=== PATIENT | female | born 1985 | race Caucasian/White ===

== ENCOUNTER 2016-04-11 02:03 | Emergency (ER) | payer SELFPAY ==
[~2016-04-11] VITALS: Ht 162.6 cm; Wt 60.7 kg
[2016-04-11 02:11] VITALS: BP 143/87; PULSE 94; RESP 18; TEMP 97.5; O2SAT 98
--- NOTE | 2016-04-11 02:26 | PD ---
HPI Chief Complaint: Laceration/Skin Injury Time Seen by Provider: 02:15 Travel History International Travel<30 days: No Contact w/Intl Traveler<30days: No Traveled to known affect area: No History of Present Illness HPI 31 yo F arrives with head trauma. She fell in the shower, slipping on water. Occipital scalp struck bathtub causing bleeding. No LOC. No confusion. No amnesia to the head injury. + EtOH tonight a few drinks over several hours. Last tetanus > 5 years prior. PFSH Past Medical History ?: Not LMP: 3 WEEKS Social History Alcohol Use: Yes Tobacco Use: Yes Allergies-Medications (Allergen,Severity, Reaction): Coded Allergies: Erythromycin (Verified Allergy, Severe, Nausea/Vomiting, 04/11/16) Penicillin (Verified Allergy, Severe, Nausea/Vomiting, 04/11/16) Reported Meds & Prescriptions Reported Meds & Active Scripts Active No Active Prescriptions or Reported Medications Review of Systems Except as stated in HPI: all other systems reviewed are Neg Physical Exam Narrative GENERAL: 31 yo F, WNWD, NAD SKIN: Warm and dry. HEAD: Atraumatic. Normocephalic. approx 2cm laceration midline occipital scalp. no evidence basilar skull fracture. EYES: Pupils equal and round. No scleral icterus. No injection or drainage. ENT: No nasal bleeding or discharge. Mucous membranes pink and moist. NECK: Trachea midline. No JVD. CARDIOVASCULAR: Regular rate and rhythm. RESPIRATORY: No accessory muscle use. Clear to auscultation. Breath sounds equal bilaterally. GASTROINTESTINAL: Abdomen soft, non-tender, nondistended. Hepatic and splenic margins not palpable. MUSCULOSKELETAL: Extremities without clubbing, cyanosis, or edema. No obvious deformities. NEUROLOGICAL: Awake and alert. No obvious cranial nerve deficits. Motor grossly within normal limits. Five out of 5 muscle strength in the arms and legs. Normal speech. PSYCHIATRIC: Appropriate mood and affect; insight and judgment normal. Data Data Last Documented VS Vital Signs Date Time Temp Pulse Resp B/P Pulse Ox O2 Delivery O2 Flow Rate FiO2 04/11/16 02:19 18 04/11/16 02:11 97.5 94 143/87 98 Orders Lidocai-Epi 1%-1:100,000 Inj (Xylocaine- (04/11/16 02:30) Lidocai-Epi 1%-1:100,000 Inj (Xylocaine- (1/14/17 02:30) Tetanus/Diphtheria Tox Adult (Tetanus/Di (04/11/16 02:45) MDM Medical Decision Making Medical Screen Exam Complete: Yes Emergency Medical Condition: Yes Differential Diagnosis laceration, contusion, ICH, skull fracture Narrative Course pt began cursing out loud shortly after arrival. risks benefits and alternatives to repair of scalp laceration discussed. pt verbalized understanding and agreed to undergo laceration repair. pt continued to curse "fuck" and variants thereof loudly and frequently, audibly throughout the ER. she was reminded such conduct was inappropriate and discouraged. pt then refused laceration repair. pt understands refusal of laceration repair places her at risk for infection, cosmetic deformity, and delayed healing. pt refused tetanus shot, placing her at risk for tetany possibly . pt demonstrates capacity for independent decision making. she left ER before signing paperwork and against advise of physician. Diagnosis Primary Impression: Left against medical advice Additional Impressions: Laceration Fall Qualified Code: W19.XXXA - Fall, initial encounter Referrals: Primary Care Physician 1 day Additional Instructions: You have a choice when it comes to health care, and we are glad that you chose [facility]. Hopefully, we have met your expectations on today's visit. You are welcome to return to [facility] at any time, as we are committed to meeting the health care needs of our community. Med/Other Pt SpecificInfo: No Change to Meds Scripts No Active Prescriptions or Reported Meds Disposition: 07 AGAINST MEDICAL ADVICE Condition: Akash Mazariegos MD Apr 11, 2016 02:26
[2016-04-11] MEDS ORDERED: LIDOCAINE 1%/EPINEPHrine 1:100,000 SOLN 30 ML VIAL INFIL ONE (02:30)
[2016-04-11] MEDS ORDERED: LIDOCAINE 1%/EPINEPHrine 1:100,000 SOLN 20 ML VIAL INFIL ONE (02:30)
[2016-04-11] MEDS ORDERED: TETANUS/DIPHTHERIA TOXOID ADULT 0.5 ML VIAL IM ONE (02:45)
== END 2016-04-11 03:08 | disposition left against medical advice (07) ==
LOC: PHED 02:03
DX: S01.01XA Laceration without foreign body of scalp, initial encounter (principal); Z72.0 Tobacco use; F10.10 Alcohol abuse, uncomplicated; W01.198A Fall on same level from slipping, tripping and stumbling with subsequent striking against other object, initial encounter; Y93.E1 Activity, personal bathing and showering; Y92.89 Other specified places as the place of occurrence of the external cause; Y99.8 Other external cause status
CPT/HCPCS: 99283

== ENCOUNTER 2017-02-23 17:15 | Emergency (ER) | payer SELFPAY ==
[~2017-02-23] VITALS: Ht 162.6 cm; Wt 58.0 kg
[2017-02-23] MEDS ORDERED: IOHEXOL 350 MG/ML 10 ML VIAL (for RAD DIAG) IVCONTRAST ONE (17:16)
[2017-02-23] MEDS ORDERED: MORPHINE SULFATE 4 MG/ML INJ IV PUSH ONE (17:30)
[2017-02-23] MEDS ORDERED: SODIUM CHLORIDE 0.9% FLUSH 10 ML FLUSH IV FLUSH PRN (17:30)
[2017-02-23] MEDS ORDERED: TETANUS/DIPHTHERIA TOXOID ADULT 0.5 ML VIAL IM ONE (17:30)
[2017-02-23] MEDS ORDERED: ONDANSETRON HCL 4 MG/2 ML VIAL IVP ONE (17:30)
[2017-02-23 17:35] VITALS: BP 123/63; PULSE 105; RESP 20; TEMP 98.2; O2SAT 99
[2017-02-23 17:36] VITALS: O2SAT 99
--- NOTE | 2017-02-23 17:42 | PD ---
HPI Chief Complaint: Bite or Sting Time Seen by Provider: 17:30 Travel History International Travel<30 days: No Contact w/Intl Traveler<30days: No Traveled to known affect area: No History of Present Illness HPI 31-year-old female brought in by ambulance for evaluation after being bitten by dog. The patient reports that she was walking her dog when another dog approached them and attempted to attack her dog. She picked her dog up and her right arm and the other dog bit her in her right arm, then her left flank. She does not know the dog that attacked her, however was able to find out that he is fully immunized. Pain is severe, constant, worse with movements. She denies any other injuries. Date of last tetanus is unknown. [facility] Past Medical History Medical History: Denies Significant Hx Immunizations Current: No ?: Unknown Past Surgical History Surgical History: No Previous Surgery Social History Alcohol Use: Yes Tobacco Use: Yes (1 PPD) Substance Use: No Allergies-Medications (Allergen,Severity, Reaction): Coded Allergies: erythromycin base (Unverified Allergy, Severe, Nausea/Vomiting, 02/23/17) penicillin G (Unverified Allergy, Severe, Nausea/Vomiting, 02/23/17) Reported Meds & Prescriptions Reported Meds & Active Scripts Active No Active Prescriptions or Reported Medications Review of Systems Except as stated in HPI: all other systems reviewed are Neg Physical Exam Narrative GENERAL: Well-developed, well-nourished, comfortable, no apparent distress SKIN: Several puncture wounds to proximal/posterior/lateral right upper extremity as well as left flank with mild surrounding ecchymosis. No active bleeding. HEAD: Atraumatic. Normocephalic. EYES: Pupils equal and round. No scleral icterus. No injection or drainage. ENT: Mucous membranes pink and moist. NECK: Trachea midline. No JVD. CARDIOVASCULAR: Regular rate and rhythm. RESPIRATORY: No accessory muscle use. Clear to auscultation. Breath sounds equal bilaterally. GASTROINTESTINAL: Abdomen soft, non-tender, nondistended. MUSCULOSKELETAL: No obvious deformities. No clubbing. No cyanosis. No edema. Moderate left flank tenderness with skin exam as above. There is also moderate tenderness to the right upper extremity. NEUROLOGICAL: Awake and alert. No obvious cranial nerve deficits. Motor grossly within normal limits. Normal speech. PSYCHIATRIC: Appropriate mood and affect; insight and judgment normal. Data Data Last Documented VS Vital Signs Date Time Temp Pulse Resp B/P (MAP) Pulse Ox O2 Delivery O2 Flow Rate FiO2 02/23/17 17:36 99 Room Air 02/23/17 17:35 98.2 105 20 Orders Orders Complete Blood Count With Diff (02/23/17 17:30) Comprehensive Metabolic Panel (02/23/17 17:30) Prothrombin Time / Inr (Pt) (02/23/17 17:30) Act Partial Throm Time (Ptt) (02/23/17 17:30) Iv Access Insert/Monitor (02/23/17 17:30) Ecg Monitoring (02/23/17 17:30) Oximetry (02/23/17 17:30) Morphine Inj (Morphine Inj) (02/23/17 17:30) Ondansetron Inj (Zofran Inj) (02/23/17 17:30) Sodium Chloride 0.9% Flush (Ns Flush) (02/23/17 17:30) Ed Urine Pregnancytest Poc (02/23/17 17:30) Humerus (Min 2vws) (02/23/17 ) Ct Abd/Pel W Iv Contrast(Rout) (02/23/17 ) Urinalysis - C+S If Indicated (02/23/17 17:30) Tetanus/Diphtheria Tox Adult (Tetanus/Di (02/23/17 17:30) Clindamycin 900 Mg Premix (Cleocin 900 M (02/23/17 17:45) Iohexol 350 Inj (Omnipaque 350 Inj) (02/23/17 17:16) Potassium Chloride (Kcl) (02/23/17 19:15) Labs Laboratory Tests Test 02/23/17 17:50 White Blood Count 14.8 TH/MM3 Red Blood Count 4.56 MIL/MM3 Hemoglobin 15.0 GM/DL Hematocrit 43.4 % Mean Corpuscular Volume 95.2 FL Mean Corpuscular Hemoglobin 32.8 PG Mean Corpuscular Hemoglobin Concent 34.5 % Red Cell Distribution Width 13.5 % Platelet Count 296 TH/MM3 Mean Platelet Volume 8.1 FL Neutrophils (%) (Auto) 75.8 % Lymphocytes (%) (Auto) 17.1 % Monocytes (%) (Auto) 6.3 % Eosinophils (%) (Auto) 0.4 % Basophils (%) (Auto) 0.4 % Neutrophils # (Auto) 11.2 TH/MM3 Lymphocytes # (Auto) 2.5 TH/MM3 Monocytes # (Auto) 0.9 TH/MM3 Eosinophils # (Auto) 0.1 TH/MM3 Basophils # (Auto) 0.1 TH/MM3 CBC Comment DIFF FINAL Differential Comment Prothrombin Time 11.0 SEC Prothromb Time International Ratio 1.0 RATIO Activated Partial Thromboplast Time 22.6 SEC Urine Color YELLOW Urine Turbidity HAZY Urine pH 7.5 Urine Specific [place] 1.022 Urine Protein 30 mg/dL Urine Glucose (UA) NEG mg/dL Urine Ketones 10 mg/dL Urine Occult Blood NEG Urine Nitrite NEG Urine Bilirubin NEG Urine Urobilinogen LESS THAN 2.0 MG/DL Urine Leukocyte Esterase NEG Urine RBC 1 /hpf Urine WBC 2 /hpf Urine Squamous Epithelial Cells 5 /hpf Urine Bacteria RARE /hpf Urine Mucus FEW /lpf Microscopic Urinalysis Comment CULT NOT INDICATED Blood Urea Nitrogen 17 MG/DL Creatinine 0.72 MG/DL Random Glucose 124 MG/DL Total Protein 7.1 GM/DL Albumin 4.1 GM/DL Calcium Level 8.6 MG/DL Alkaline Phosphatase 49 U/L Aspartate Amino Transf (AST/SGOT) 13 U/L Alanine Aminotransferase (ALT/SGPT) 13 U/L Total Bilirubin 0.5 MG/DL Sodium Level 138 MEQ/L Potassium Level 3.2 MEQ/L Chloride Level 101 MEQ/L Carbon Dioxide Level 28.9 MEQ/L Anion Gap 8 MEQ/L Estimat Glomerular Filtration Rate 93 ML/MIN MDM Medical Decision Making Medical Screen Exam Complete: Yes Emergency Medical Condition: Yes Differential Diagnosis Dog bite, intra-abdominal trauma, retroperitoneal trauma Narrative Course All puncture wounds were thoroughly irrigated with normal saline. Wounds will be left open to help prevent infection. Antibiotic ointment and sterile dressing applied. Vital signs reviewed. Labs reviewed. Potassium replaced orally. UA shows negative occult blood, 1 rbc, not suggestive of UTI. Right humerus x-ray shows no acute fracture. CT abdomen pelvis: CONCLUSION: 1. Contusion and soft tissue injury in the left flank. No foreign body. 2. No abdominal visceral injury. Patient has a penicillin allergy. She was given a dose of IV clindamycin, IV morphine. Tetanus was updated. Police were able to find out that the dog is vaccinated against rabies. Patient will be discharged home with a prescription for clindamycin and advised to return to the emergency Department in 2 days for a wound check. She was informed on when to return to the emergency Department sooner. She verbalizes understanding and agreement with plan. Diagnosis Primary Impression: Dog bite of trunk Qualified Codes: S21.95XA - Open bite of unspecified part of thorax, initial encounter; W54.0XXA - Bitten by dog, initial encounter Additional Impression: Dog bite of right arm Qualified Codes: S41.151A - Open bite of right upper arm, initial encounter; W54.0XXA - Bitten by dog, initial encounter Referrals: Primary Care Physician 2 days Additional Instructions: Take antibiotics as prescribed. Return to the emergency department in 48 hours for a wound check. Return to the emergency Department sooner for worsening symptoms or any other concerns. Scripts Oxycodone-Acetaminophen (Percocet) 5-325 mg Tab 1 TAB PO Q6H Y for PAIN, #20 TAB 0 Refills Prov: Geovanni Chi MD 02/23/17 Clindamycin (Clindamycin) 150 Mg Cap 450 MG PO Q6H for Infection for 10 Days, #120 CAP 0 Refills Prov: Geovanni Chi MD 02/23/17 Disposition: 01 DISCHARGE HOME Condition: Stable Geovanni Chi MD Feb 23, 2017 17:42
[2017-02-23] MEDS ORDERED: CLINDAMYCIN 900 MG/DEX PREMIX 50 ML IV ONE (17:45)
[2017-02-23 18:06] LABS: AUTOMATED NEUTROPHIL # 11.2 TH/MM3 (1.8-7.7); BASOPHIL # 0.1 TH/MM3 (0-0.2); BASOPHIL % 0.4 % (0.0-2.0); EOSINOPHIL # 0.1 TH/MM3 (0-0.4); EOSINOPHIL % 0.4 % (0.0-4.0); HEMATOCRIT 43.4 % (35.0-46.0); HEMO FLAGS DIFF FINAL; LYMPH % 17.1 % (9.0-44.0); LYMPHOCYTE # 2.5 TH/MM3 (1.0-4.8); MEAN CELL VOLUME 95.2 FL (80.0-100.0); MEAN CORPUSCULAR HEMOGLOBIN 32.8 PG (27.0-34.0); MEAN CORPUSCULAR HGB CONC 34.5 % (32.0-36.0); MONO % 6.3 % (0.0-8.0); NEUT % 75.8 % (16.0-70.0); PLATELET COUNT 296 TH/MM3 (150-450); RED BLOOD COUNT 4.56 MIL/MM3 (4.00-5.30); RED CELL DISTRIBUTION WIDTH 13.5 % (11.6-17.2); WHITE BLOOD COUNT 14.8 TH/MM3 (4.0-11.0)
[2017-02-23 18:11] LABS: BACTERIA, URINE RARE /hpf; BLOOD, URINE NEG (NEG); COMMENT (UR) CULT NOT INDICATED; CULTURE IF INDICATED CULT NOT INDICATED; GLUCOSE,URINE NEG (NEG); KETONE, URINE 10 mg/dL (NEG); MUCUS URINE FEW /lpf (OCC); NITRITE,URINE NEG (NEG); PH, URINE 7.5 (5.0-8.5); SQUAMOUS EPITHELIAL CELL URINE 5 /hpf (0-5); URINE COLOR YELLOW (YELLW/STRAW)
--- NOTE | 2017-02-23 18:13 | RADRPT ---
EXAM DATE/TIME: 02/23/2017 17:55 [facility] COMPARISON: No previous studies available for comparison. INDICATIONS : Dog bite on posterior arm distal to shoulder. MEDICAL HISTORY : None. SURGICAL HISTORY : None. ENCOUNTER: Initial ACUITY: 1 day PAIN SCORE: 5/10 LOCATION: Right humerus FINDINGS: Two view examination of the right humerus demonstrates no evidence of fracture or dislocation. Bony mineralization is normal. The soft tissue structures are intact. No foreign body. CONCLUSION: No acute fracture. Dylan Raines MD on February 23, 2017 at 18:11 Board Certified Radiologist. This report was verified electronically.
[2017-02-23 18:16] LABS: APTT (PATIENT) 22.6 SEC (24.3-30.1)
[2017-02-23 18:27] LABS: ANION GAP 8 MEQ/L (5-15); AST (GOT) 13 U/L (15-37); BICARBONATE 28.9 MEQ/L (21.0-32.0); BLOOD UREA NITROGEN 17 MG/DL (7-18); CHLORIDE 101 MEQ/L (98-107); GLOMERULAR FILTRATION RATE 93 ML/MIN (>89); POTASSIUM 3.2 MEQ/L (3.5-5.1); SODIUM (NA) 138 MEQ/L (136-145)
[2017-02-23 18:30] LABS: ALKALINE PHOSPHATASE 49 U/L (45-117); ALT (GPT) 13 U/L (10-53); TOTAL BILIRUBIN ADULT 0.5 MG/DL (0.2-1.0)
--- NOTE | 2017-02-23 18:54 | RADRPT ---
EXAM DATE/TIME: 02/23/2017 18:29 [facility] COMPARISON: No previous studies available for comparison. INDICATIONS : Dog bite left flank. IV CONTRAST: 80 cc Omnipaque 350 (iohexol) IV ORAL CONTRAST: No oral contrast ingested. RADIATION DOSE: 6.64 CTDIvol (mGy) MEDICAL HISTORY : None SURGICAL HISTORY : None. ENCOUNTER: Initial ACUITY: 1 day PAIN SCALE: 6/10 LOCATION: Left flank TECHNIQUE: Volumetric scanning of the abdomen and pelvis was performed. Using automated exposure control and ad justment of the mA and/or kV according to patient size, radiation dose was kept as low as reasonably achievable to obtain optimal diagnostic quality images. DICOM format image data is available electro nically for review and comparison. FINDINGS: LOWER LUNGS: The visualized lower lungs are clear. LIVER: Homogeneous density without lesion. There is no dilation of the biliary tree. No calcified gallston es. SPLEEN: Normal size without lesion. PANCREAS: Within normal limits. KIDNEYS: Normal in size and shape. There is no mass, stone or hydronephrosis. ADRENAL GLANDS: Within normal limits. VASCULAR: There is no aortic aneurysm. BOWEL/MESENTERY: The stomach, small bowel, and colon demonstrate no acute abnormality. There is no free intraperitone al air or fluid. ABDOMINAL WALL: Within normal limits. RETROPERITONEUM: There is no lymphadenopathy. BLADDER: No wall thickening or mass. REPRODUCTIVE: Within normal limits. INGUINAL: There is no lymphadenopathy or hernia. MUSCULOSKELETAL: There is soft tissue injury including contusion and laceration in the left flank. No foreign bodies. No penetrating abdominal injury. CONCLUSION: 1. Contusion and soft tissue injury in the left flank. No foreign body. 2. No abdominal visceral injury. Dylan Raines MD on February 23, 2017 at 18:51 Board Certified Radiologist. This report was verified electronically.
[2017-02-23] MEDS ORDERED: CLIN150C14 PO (19:10)
[2017-02-23] MEDS ORDERED: PERC5TAB12 PO (19:10)
[2017-02-23] MEDS ORDERED: POTASSIUM CHLORIDE 20 MEQ CONTROLLED RELEASE TAB PO ONE (19:15)
== END 2017-02-23 19:35 | disposition home or self-care (01) ==
LOC: NEPD 17:15
DX: S21.95XA Open bite of unspecified part of thorax, initial encounter (principal); S41.151A Open bite of right upper arm, initial encounter; W54.0XXA Bitten by dog, initial encounter; Y93.K1 Activity, walking an animal; Z88.0 Allergy status to penicillin
CPT/HCPCS: 73060; 74177; 80053; 81001; 84703; 85025; 85610; 85730; 90471; 90714; 96365; 96375; 99285; J2270; J2405; Q9967

== ENCOUNTER 2017-02-26 15:39 | Emergency (ER) | payer SELFPAY ==
[~2017-02-26] VITALS: Ht 162.6 cm; Wt 52.0 kg
[2017-02-26 15:39] VITALS: BP 119/72; PULSE 128; RESP 20; TEMP 99.1; O2SAT 99
[~2017-02-26 15:39] MED LIST: CLIN150C14 PO; PERC5TAB12 PO
[2017-02-26 17:53] VITALS: PULSE 75
--- NOTE | 2017-02-26 17:59 | PD ---
HPI Chief Complaint: Wound/Suture/Staple Re-Check Time Seen by Provider: 17:55 Travel History International Travel<30 days: No Contact w/Intl Traveler<30days: No Traveled to known affect area: No History of Present Illness HPI Patient comes in for recheck of dog bites from the of last month. Patient denies any complaints or concerns with them. Reports she is taking all medication as prescribed. Denies any pain around bites. States she is having pain around site of tetanus shot. Reports she is keeping wounds dry and clean as possible using soap and water and changing the dressing regularly. Reports occasional scant amount of drainage that is nonpurulent. PFSH Past Medical History Medical History: Denies Significant Hx Immunizations Current: No Influenza Vaccination: No ?: Not Past Surgical History Surgical History: No Previous Surgery Social History Alcohol Use: Yes (socially) Tobacco Use: Yes (1 PPD) Substance Use: No Allergies-Medications (Allergen,Severity, Reaction): Coded Allergies: erythromycin base (Unverified Allergy, Severe, Nausea/Vomiting, 02/23/17) penicillin G (Unverified Allergy, Severe, Nausea/Vomiting, 02/23/17) Reported Meds & Prescriptions Reported Meds & Active Scripts Active Percocet (Oxycodone-Acetaminophen) 5-325 mg Tab 1 Tab PO Q6H PRN Clindamycin (Clindamycin HCl) 150 Mg Cap 450 Mg PO Q6H 10 Days Review of Systems Except as stated in HPI: all other systems reviewed are Neg Physical Exam Narrative GENERAL: Well-developed, well nourished, in no acute distress, and non-ill appearing. SKIN: Focused skin assessment warm and dry. Well-healing dog bites noted right posterior upper arm and left lower lateral abdominal quadrant. There are nontender. There is ecchymosis noted there is old and healing. There is no crepitus or drainage. They are afebrile. They're nontender. HEAD: Atraumatic. Normocephalic. EYES: Pupils equal and round. EOMI. No scleral icterus. No injection or drainage. ENT: No nasal bleeding or discharge. Mucous membranes pink and moist. NECK: Trachea midline. Supple. No nuclear rigidity. RESPIRATORY: No accessory muscle use. No respiratory distress. MUSCULOSKELETAL: No obvious deformities. No clubbing. No cyanosis. No edema. Full range of motion. NEUROLOGICAL: Awake and alert. No obvious cranial nerve deficits. Motor grossly within normal limits. Normal speech. PSYCHIATRIC: Appropriate mood and affect; insight and judgment normal. Data Data Last Documented VS Vital Signs Date Time Temp Pulse Resp B/P (MAP) Pulse Ox O2 Delivery O2 Flow Rate FiO2 02/26/17 18:08 02/26/17 17:53 75 02/26/17 15:39 99.1 20 99 Room Air Orders Orders Ed Discharge Order (02/26/17 17:59) MDM Medical Decision Making Medical Screen Exam Complete: Yes Emergency Medical Condition: Yes Differential Diagnosis Wound infection, wound recheck, other Narrative Course Patient in no obvious distress upon re-evaluation. Any questions/concerns in reference to patient diagnosis/condition discussed and clarified prior to patient's discharge. Follow up with patient's primary physician or primary care clinic as needed. Instructed patient to return to ED immediately, if symptoms return/worsen. Patient showed understanding of above instructions. Further instructions and recommendations were detailed in discharge paperwork. Patient ambulated without difficulty out of ED at discharge. Diagnosis Primary Impression: Encounter for wound re-check Referrals: [facility] Patient Instructions: Acute Wound Care (DC), General Instructions Additional Instructions: Follow-up with your primary care physician as needed. Take all medication as previously prescribed. Keep wound dry and clean as possible using soap and water. Do not soak or submerge wounds. Return to the emergency department if symptoms get worse. Disposition: 01 DISCHARGE HOME Condition: Stable iRck Sumner Feb 26, 2017 17:59
== END 2017-02-26 18:31 | disposition home or self-care (01) ==
LOC: NEPD 15:39
DX: Z51.89 Encounter for other specified aftercare (principal); F17.200 Nicotine dependence, unspecified, uncomplicated
CPT/HCPCS: 99281

== ENCOUNTER 2017-03-02 15:58 | Emergency (ER) | payer SELFPAY ==
[~2017-03-02] VITALS: Ht 162.6 cm; Wt 52.3 kg
[2017-03-02 15:59] VITALS: BP 124/62; PULSE 100; RESP 20; TEMP 99.3; O2SAT 99
[2017-03-02] MEDS ORDERED: MUPI2OIN TOPICAL (16:16)
--- NOTE | 2017-03-02 16:26 | PD ---
HPI Chief Complaint: Skin Problem Time Seen by Provider: 16:15 Travel History International Travel<30 days: No Contact w/Intl Traveler<30days: No Traveled to known affect area: No History of Present Illness HPI 31-year-old female presents to the emergency room for evaluation of itchy rash that started yesterday. She got bit by a dog a week ago and was placed on 450 mg clindamycin 4 times daily. She has not taken anything for the rash. Denies any other recent or new exposures to medication or food. Patient denies sore throat, chest pain, shortness of breath, and difficulty breathing. PFSH Past Medical History Immunizations Current: No Social History Alcohol Use: Yes (socially) Tobacco Use: Yes (1 PPD) Substance Use: No Allergies-Medications (Allergen,Severity, Reaction): Coded Allergies: erythromycin base (Unverified Allergy, Severe, Nausea/Vomiting, 02/23/17) penicillin G (Unverified Allergy, Severe, Nausea/Vomiting, 02/23/17) Reported Meds & Prescriptions Reported Meds & Active Scripts Active Mupirocin Topical (Mupirocin) 2 % Oint 1 Applic TOPICAL BID Percocet (Oxycodone-Acetaminophen) 5-325 mg Tab 1 Tab PO Q6H PRN Clindamycin (Clindamycin HCl) 150 Mg Cap 450 Mg PO Q6H 10 Days Review of Systems Except as stated in HPI: all other systems reviewed are Neg Physical Exam Narrative GENERAL: Well-nourished, well-developed female in no acute distress. Afebrile. Ambulatory. SKIN: Focused skin assessment warm/dry. Erythematous, maculopapular rash especially over the torso. There are several healing dog wounds to the left lateral abdomen with slight surrounding erythema. No drainage. No induration. Mildly tender to palpation. HEAD: Normocephalic. EYES: No scleral icterus. No injection or drainage. ENT: Mucosa pink and moist. No erythema or exudates. No uvular edema. No uvular , palatal, or tonsillar deviation. Airway patent. Nasal turbinates appear normal without nasal blood, purulent drainage or septal hematoma. NECK: Supple, trachea midline. No JVD or lymphadenopathy. CARDIOVASCULAR: Regular rate and rhythm without murmurs, gallops, or rubs. RESPIRATORY: Breath sounds equal bilaterally. No accessory muscle use. No crackles, rales, wheezes, or rhonchi. Data Data Last Documented VS Vital Signs Date Time Temp Pulse Resp B/P (MAP) Pulse Ox O2 Delivery O2 Flow Rate FiO2 03/02/17 15:59 99.3 100 20 124/62 (82) 99 Room Air [facility] Medical Decision Making Medical Screen Exam Complete: Yes Emergency Medical Condition: Yes Medical Record Reviewed: Yes Differential Diagnosis Wound recheck, antibiotic side effect, allergic reaction Narrative Course 31 year-old female presents to the ED for evaluation of itchy rash that started yesterday. Patient was placed on high-dose clindamycin 1 week ago for dog bite. Physical exam reveals an erythematous maculopapular rash especially around the torso. There are several healing dog-ites to the left lateral abdomen with slight surrounding erythema but without drainage, beefy red erythema, or induration. This is allergic reaction. No evidence of anaphylaxis. Patient told to take Benadryl for rash. Told to stop taking clindamycin. Given that she has been on high-dose antibiotics for 1 week, I do not feel it is necessary to continue with another antibiotic. She will instead be discharged with mupirocin ointment and told to follow-up with her primary care physician or return for worsening symptoms. She understands and agrees to plan. Diagnosis Primary Impression: Allergic reaction caused by a drug Qualified Codes: T78.40XA - Allergy, unspecified, initial encounter Referrals: Primary Care Physician Additional Instructions: Keep wound clean and dry. Apply ointment twice daily. Apply ice to the affected area for 20 minutes at a time, as needed for pain and swelling. Follow-up with a primary care physician. Return to the emergency room for worsening symptoms. Med/Other Pt SpecificInfo: Prescription(s) given Scripts Mupirocin Topical (Mupirocin Topical) 2 % Oint 1 APPLIC TOPICAL BID for Mgmt Bacterial Infection, #22 GM 0 Refills Prov: Phuc Jenkins MD 03/02/17 Disposition: 01 DISCHARGE HOME Condition: Stable Baylee Fisher Mar 02, 2017 16:26
== END 2017-03-02 16:53 | disposition home or self-care (01) ==
LOC: NEPK 15:58
DX: T36.8X5A Adverse effect of other systemic antibiotics, initial encounter (principal); R21 Rash and other nonspecific skin eruption; F17.200 Nicotine dependence, unspecified, uncomplicated
CPT/HCPCS: 99283

== ENCOUNTER 2017-06-21 13:17 | Emergency (ER) | payer SELFPAY ==
[~2017-06-21 13:17] MED LIST changes: +MUPI2OIN TOPICAL
== END 2017-06-21 16:05 | disposition left against medical advice (07) ==
LOC: NED 13:17
DX: J00 Acute nasopharyngitis [common cold] (principal)
CPT/HCPCS: 99281

== ENCOUNTER 2017-06-25 20:59 | Emergency (ER) | payer SELFPAY ==
[~2017-06-25] VITALS: Ht 162.6 cm; Wt 54.5 kg
[2017-06-25 21:40] VITALS: BP 137/68; PULSE 99; RESP 16; TEMP 98.1; O2SAT 100
[2017-06-25] MEDS ORDERED: LEVOFLOXACIN 500 MG TAB PO ONE (22:30)
[2017-06-25] MEDS ORDERED: LEVA500T33 PO (22:34)
[2017-06-25] MEDS ORDERED: FLUT1SPR5 EACH NARE (22:34)
--- NOTE | 2017-06-25 22:39 | PD ---
HPI Chief Complaint: Cold / Flu Symptoms Time Seen by Provider: 22:21 Travel History International Travel<30 days: No Contact w/Intl Traveler<30days: No Traveled to known affect area: No History of Present Illness HPI 32-year-old female presents for evaluation of bilateral ear pain, sinus pressure and cough. She reports that she has had a cough and congestion for 1 month. Over the past several days it is worsened. Over the past 8 days she has developed bilateral ear pain and pressure, worse on the left side. She was seen 4 days ago at an urgent care center where she was prescribed prednisone and azithromycin. Symptoms have worsened which is what prompted evaluation. She reports that she was having fevers last week and earlier this week but none today. She has no other complaints at this time. [facility] Past Medical History Medical History: Denies Significant Hx Immunizations Current: No Tetanus Vaccination: < 5 Years Influenza Vaccination: No ?: Not LMP: 382/18 Past Surgical History Surgical History: No Previous Surgery Social History Alcohol Use: Yes (socially) Tobacco Use: Yes (1 PPD) Substance Use: No Allergies-Medications (Allergen,Severity, Reaction): Coded Allergies: erythromycin base (Unverified Allergy, Severe, Nausea/Vomiting, 03/02/17) penicillin G (Unverified Allergy, Severe, Nausea/Vomiting, 03/02/17) Reported Meds & Prescriptions Reported Meds & Active Scripts Active Flonase Nasal Arp (Fluticasone Nasal Arp) 50 Mcg/Act Arp 100 Mcg EACH NARE BID Levaquin (Levofloxacin) 500 Mg Tablet 500 Mg PO DAILY 9 Days Mupirocin Topical (Mupirocin) 2 % Oint 1 Applic TOPICAL BID Percocet (Oxycodone-Acetaminophen) 5-325 mg Tab 1 Tab PO Q6H PRN Clindamycin (Clindamycin HCl) 150 Mg Cap 450 Mg PO Q6H 10 Days Review of Systems Except as stated in HPI: all other systems reviewed are Neg Physical Exam Narrative GENERAL: Well-developed well-nourished female in no acute distress SKIN: Warm and dry. HEAD: Atraumatic. Normocephalic. EYES: Pupils equal and round. No scleral icterus. No injection or drainage. ENT: No nasal bleeding or discharge. Mucous membranes pink and moist. Bilaterally the tympanic membranes are bulging and erythematous but intact. There is no mastoid tenderness. There is no oral pharyngeal erythema or exudate. NECK: Trachea midline. No JVD. No lymphadenopathy. CARDIOVASCULAR: Regular rate and rhythm. No murmur appreciated. RESPIRATORY: No accessory muscle use. Clear to auscultation. Breath sounds equal bilaterally. Data Data Last Documented VS Vital Signs Date Time Temp Pulse Resp B/P (MAP) Pulse Ox O2 Delivery O2 Flow Rate FiO2 06/25/17 21:40 98.1 99 16 137/68 (91) 100 Orders Orders Levofloxacin (Levaquin) (06/25/17 22:30) Ed Discharge Order (06/25/17 22:29) [facility] Medical Decision Making Medical Screen Exam Complete: Yes Emergency Medical Condition: Yes Medical Record Reviewed: Yes Differential Diagnosis Otitis media, eustachian tube dysfunction, sinusitis, pneumonia, influenza, bronchitis Narrative Course Examination is consistent with bilateral otitis media and sinusitis, worsening despite azithromycin. She is allergic to erythromycin and penicillin( morbilliform rashes to both antibiotics) she will be started on Levaquin, first dose provided today. She is stable for discharge. Diagnosis Primary Impression: Otitis media Additional Impression: Sinusitis Additional Instructions: Medication as prescribed. Stay well hydrated and well-nourished. Return for any acutely new or worsening symptoms. Med/Other Pt SpecificInfo: Prescription(s) given Scripts Fluticasone Nasal Arp (Flonase Nasal Arp) 50 Mcg/Act Arp 100 MCG EACH NARE BID for Allergies, #1 BOTTLE 0 Refills Prov: Marcia Narvaez DO 06/25/17 Levofloxacin (Levaquin) 500 Mg Tablet 500 MG PO DAILY for Infection for 9 Days, #9 TAB 0 Refills Prov: Marcia Narvaez DO 06/25/17 Disposition: 01 DISCHARGE HOME Condition: Stable Arian Scherer Jun 25, 2017 22:39
[2017-06-25] MEDS ORDERED: AZIT500T2 PO (22:40)
== END 2017-06-25 22:51 | disposition home or self-care (01) ==
LOC: NEPD 20:59
DX: H66.93 Otitis media, unspecified, bilateral (principal); J32.9 Chronic sinusitis, unspecified; F17.200 Nicotine dependence, unspecified, uncomplicated
CPT/HCPCS: 99283